=== PATIENT | female | born 1965 | race Caucasian/White ===

== ENCOUNTER → 2018-06-30 | Outpatient (CLI) | payer OTHER ==
--- NOTE | 2018-06-30 14:48 | RAD ---
Thyroid ultrasound study without comparison for enlarged thyroid on physical exam. TECHNIQUE AND FINDINGS: Real-time grayscale and color Doppler evaluation of the thyroid gland is performed. The gland is heterogeneous diffusely, there is normal color flow. No discrete thyroid nodules or masses are seen. No suspicious adenopathy is evident. The right lobe of the thyroid gland measures 3.0 x 1.0 x 0.9 cm in the left measures 3.2 x 1.0 x 0.7 cm. The isthmus measures 2 mm in thickness. IMPRESSION: 1. Mild diffuse heterogeneity with no focal thyroid abnormalities. Electronically signed by: Dwayne Funk MD (06/30/2018 2:44 PM) [id number]
== END | disposition home or self-care (01) ==
LOC: US 10:49
PROVIDERS: ATTEND Nurse Practitioner Family
DX: E04.8 Other specified nontoxic goiter (principal)
CPT/HCPCS: 76536